=== PATIENT | male | born 1970 | race African-American/Black ===

== ENCOUNTER 2024-01-28 19:44 | Emergency (ER) | payer OTHER ==
[~2024-01-28] VITALS: Ht 175.3 cm; Wt 81.8 kg
[2024-01-28 20:22] VITALS: TEMP 98.5
[2024-01-28 20:25] VITALS: BP 152/100; PULSE 78; RESP 18
== END 2024-01-28 21:56 | disposition left against medical advice (07) ==
LOC: EMS 19:44
DX: I12.9 Hypertensive chronic kidney disease with stage 1 through stage 4 chronic kidney disease, or unspecified chronic kidney disease (principal); N18.6 End stage renal disease; F41.9 Anxiety disorder, unspecified; K21.9 Gastro-esophageal reflux disease without esophagitis; E21.2 Other hyperparathyroidism; G47.33 Obstructive sleep apnea (adult) (pediatric); Z99.2 Dependence on renal dialysis
CPT/HCPCS: 99283; Z7502